=== PATIENT | female | born 1985 | race Caucasian/White ===

== ENCOUNTER 2017-11-27 11:20 | Emergency (ER) | payer MEDICAID ==
--- NOTE | 2017-11-27 11:51 | EDM.PDOC ---
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 Stated Complaint: Vaginal bleeding; miscarriage Time Seen by Provider: 11/27/17 11:30 Source of Information: Reports: Patient History Limitations: Reports: No Limitations - History of Present Illness INITIAL COMMENTS - FREE TEXT/NARRATIVE: Patient is a 32-year-old who comes in with vaginal bleeding states that she started having a miscarriage November 05 and today started bleeding heavily today she says that she's bled through multiple pads since this morning states that she put a tampon on an within 2 seconds was put at this time we went ahead and did a CBC a BMP and will try to obtain a ultrasound Onset: Gradual Duration: Week(s): (20 half weeks), Getting Worse Location: Reports: Other (Vaginal) Quality: Reports: Ache Severity: Mild (3 out of 10) Worsens with: Reports: Movement Context: Reports: Other () Associated Symptoms: Reports: No Other Symptoms, Nausea/Vomiting, Other ( Lightheaded) - Related Data Allergies Allergy/AdvReac Type Severity Reaction Status Date / Time No Known Allergies Allergy Verified 11/27/17 11:21 Home Meds: Home Meds Multivitamin [Multivitamins] 1 tab PO DAILY 11/27/17 [History] Norgestimate-Ethinyl Estradiol [[place] 28 Tablet] 1 tab PO DAILY 11/27/17 [ History] Sertraline [Zoloft] 25 mg PO DAILY 11/27/17 [History] Social & Family History - Tobacco Use Smoking Status *Q: Never Smoker - Recreational Drug Use Recreational Drug Use: No ED ROS GENERAL - Review of Systems Review Of Systems: See Below Constitutional: Reports: Weakness HEENT: Reports: No Symptoms Respiratory: Reports: No Symptoms Cardiovascular: Reports: No Symptoms Endocrine: Reports: No Symptoms GI/Abdominal: Reports: Abdominal Pain (Cramping) : Reports: Other (Vaginal bleeding secondary to miscarriage) Musculoskeletal: Reports: No Symptoms Skin: Reports: Pallor Neurological: Reports: No Symptoms Psychiatric: Reports: No Symptoms Hematologic/Lymphatic: Reports: No Symptoms Immunologic: Reports: No Symptoms Free Text/Narrative/Comment: Back in January 04 patient measured approximately 7 weeks gestation she started bleeding felt that she was having a miscarriage has a start bleeding since ED EXAM, GENERAL - Physical Exam Exam: See Below Exam Limited By: Other (Lightheaded) General Appearance: Alert, WD/WN, No Apparent Distress Ears: Normal External Exam, Normal Canal, Hearing Grossly Normal, Normal TMs Ear Exam: Bilateral Ear: Auricle Normal, Canal Normal, TM normal Nose: Normal Inspection, Normal Mucosa, No Blood Throat/Mouth: Normal Inspection Head: Atraumatic, Normocephalic Neck: Normal Inspection, Supple, Non-Tender, Full Range of Motion Respiratory/Chest: No Respiratory Distress, Lungs Clear, Normal Breath Sounds, No Accessory Muscle Use, Chest Non-Tender Cardiovascular: Normal Peripheral Pulses, Regular Rate, Rhythm, No Edema, No Gallop, No JVD, No Murmur, No Rub GI/Abdominal: Normal Bowel Sounds, Soft, Non-Tender, No Organomegaly, No Distention, No Abnormal Bruit, No Mass Rectal (Female) Exam: Deferred Back Exam: Normal Inspection, Full Range of Motion, NT Extremities: Normal Inspection, Normal Range of Motion, Non-Tender, Normal Capillary Refill, No Pedal Edema Neurological: Alert, Oriented, CN II-XII Intact, Normal Cognition, Normal Gait, Normal Reflexes, No Motor/Sensory Deficits Psychiatric: Normal Affect, Normal Mood Skin Exam: Warm, Dry, Intact, Normal Color, No Rash Course - Vital Signs Last Recorded V/S: Last Vital Signs Temp 98.9 F 11/27/17 11:35 Pulse 76 11/27/17 11:35 Resp 16 11/27/17 11:35 BP 122/75 11/27/17 11:35 Pulse Ox 100 11/27/17 11:35 - Orders/Labs/Meds Orders: Active Orders 24 hr Category Date Time Status OB 1st Tri Ea Addl Gest [US] Stat Exams 11/27/17 12:09 Ordered OB Transvaginal [US] Stat Exams 11/27/17 12:09 Ordered Labs: Laboratory Tests 11/27/17 11/27/17 11/27/17 Range/Units 11:35 11:40 11:40 WBC 6.3 (4.0-10.2) K/uL RBC 4.05 (3.77-5.09) M/uL Hgb 12.6 (11.7-15.5) g/dL Hct 37.1 (34.0-46.0) % MCV 91.6 (84.0-98.0) fL MCH 31.1 (28.2-33.3) pg MCHC 34.0 (31.7-36.0) g/dL RDW 12.4 (11.2-14.1) % Plt Count 226 (150-350) K/uL Neut % (Auto) 64.0 (45.0-80.0) % Lymph % (Auto) 21.6 (10.0-50.0) % Island % (Auto) 9.8 (2.0-14.0) % Eos % (Auto) 4.3 (0.0-5.0) % Baso % (Auto) 0.3 (0.0-2.0) % Neut # (Auto) 4.03 (1.40-7.00) K/uL Lymph # (Auto) 1.36 (0.50-3.50) K/uL Island # (Auto) 0.62 (0.00-1.00) K/uL Eos # (Auto) 0.27 (0.00-0.50) K/uL Baso # (Auto) 0.02 (0.00-0.20) K/uL Sodium 137 (136-145) mmol/L Potassium 3.8 (3.5-5.1) mmol/L Chloride 105 (98-107) mmol/L Carbon Dioxide 27.8 (21.0-32.0) mmol/L BUN 12 (7-18) mg/dL Creatinine 0.70 (0.51-1.17) mg/dL Est Cr Clr Drug Dosing 118.54 mL/min Estimated GFR (MDRD) > 60 mL/min Glucose 105 (74-106) mg/dL Calcium 8.8 (8.5-10.1) mg/dL HCG, Quant 339 mIU/mL Departure - Departure Time of Disposition: 12:52 Disposition: DC/Tfer to [facility] 02 Condition: Good Clinical Impression: Incomplete - Discharge Information *PRESCRIPTION DRUG MONITORING PROGRAM REVIEWED*: No *COPY OF PRESCRIPTION DRUG MONITORING REPORT IN PATIENT LOBO: No Referrals: Myranda Henry PA-C [Primary Care Provider] - Forms: ED Department Discharge Care Plan Goals: Patient is what will be transferred to [facility] OB care at this time she has retained product seen on ultrasound spoke with Dr. Askew in the ER a septated transfer at this time patient is hemodynamically stable BP 1/22/75 pulse is 72 respiratory rate is 16 and sats sats 100% she will be transferred by her boyfriend who is a home supervisor please feel free to call me Dr. Hess at - My Orders Last 24 Hours: My Active Orders 11/27/17 12:09 OB 1st Tri Ea Addl Gest [US] Stat OB Transvaginal [US] Stat - Assessment/Plan Last 24 Hours: My Active Orders 11/27/17 12:09 OB 1st Tri Ea Addl Gest [US] Stat OB Transvaginal [US] Stat
[2017-11-27 12:01] LABS: CHLORIDE,CL 105 mmol/L (98-107); SODIUM,NA 137 mmol/L (136-145)
== END 2017-11-27 13:05 ==
LOC: LL.ED 11:20
DX: O03.4 Incomplete spontaneous abortion without complication (principal); Z79.899 Other long term (current) drug therapy
CPT/HCPCS: 36415; 76801; 76817; 80048; 84702; 85025; 99285